=== PATIENT | male | born 1950 | race Caucasian/White ===

== ENCOUNTER 2022-11-10 08:07 | Day surgery (SDC) | payer MEDICARE ==
[~2022-11-10] VITALS: Ht 167.6 cm; Wt 72.3 kg
[2022-11-10] VITALS (12 sets, daily range): BP systolic 109–138; BP diastolic 70–83
[~2022-11-10 08:07] MED LIST: ASPI81CH PO; CRUTCH2 USE; HYDACE5 PO; MAGN84 PO; MULVITA PO; PROBIOTIC1 EA13 PO; SILD25T; VITAMIN D310 MC4 PO; Vitamin B-Comp1 EACH
--- NOTE | 2022-11-10 10:12 | NUR ---
Ambulatory in Day Surgery History, Chart, Medications and Allergies reviewed before start of procedure.Patient confirms NPO status and agrees with scheduled surgery. Pre-Op teaching done. Pt verbalizes understanding. Patient States Post-Procedure ride home has been arranged.
--- NOTE | 2022-11-10 10:50 | NUR ---
11/10/22 1050 Vanessa Galvin History, Chart, Medications and Allergies reviewed before start of procedure. MONITOR INTACT WITH CONTINUOUS PULSE OXIMETRY, CONTINUOUS END TITAL CO2, AND INTERMITTENT BLOOD PRESSURE. 3-LEAD EKG REVIEWED WITH PHYSICIAN PRIOR TO START OF PROCEDURE. O2 VIA N/C INTACT THROUGHOUT SEDATION/PROCEDURE. See Anesthesia record FROM DR. LUA
--- NOTE | 2022-11-10 14:21 | NUR ---
DISCHARGE NOTE PT A&OX4, VSS, NO COMPLAINTS. ICE TO INCISION SITE, PT DRESSED INDEPENDENTLY C RN AT [facility]. Discharge instructions reviewed with patient. Patient verbalizes understanding. Copy given to patient to take home. Dressing to procedure site clean, dry, intact with no visible drainage, swelling, erythema or bruising noted. Discharged via wheelchair to private car for ride home.
== END 2022-11-10 14:30 | disposition home or self-care (01) ==
LOC: ORSCMMR 08:07
PROVIDERS: Surgery
PROC: 0YU60JZ Supplement Left Inguinal Region with Synthetic Substitute, Open Approach (ICD-10-PCS; principal; 2022-11-10 09:45)
PROC: 3E0M05Z Introduction of Adhesion Barrier into Peritoneal Cavity, Open Approach (ICD-10-PCS; principal; 2022-11-10 09:45)
DX: K40.90 Unilateral inguinal hernia, without obstruction or gangrene, not specified as recurrent (principal); Z79.82 Long term (current) use of aspirin; Z86.73 Personal history of transient ischemic attack (TIA), and cerebral infarction without residual deficits
CPT/HCPCS: A9270; C1781; J0690; J1100; J2405; J2704; J2795; J3010; J7120

== ENCOUNTER 2025-01-17 15:56 | Observation (INO) | payer OTHER ==
[2025-01-17 17:24] LABS: BASOPHILS ABSOLUTE AUTO 0.05 K/mm3 (0.00-0.23); BASOPHILS PERCENT AUTO 1 % (0-2); EOSINOPHILS ABSOLUTE AUTO 0.10 K/mm3 (0.00-0.68); EOSINOPHILS PERCENT AUTO 2 % (0-6); Hematocrit 41.9 % (37.0-53.0); Hemoglobin 14.1 g/dL (13.5-17.5); IMMATURE GRAN ABSOLUTE AUTO 0.02 K/mm3 (0.00-0.10); IMMATURE GRAN PERCENT AUTO 0 % (0-1); LYMPHOCYTES ABSOLUTE AUTO 1.13 K/mm3 (0.84-5.20); LYMPHOCYTES PERCENT AUTO 21 % (21-46); MONOCYTES ABSOLUTE AUTO 0.65 K/mm3 (0.16-1.47); MONOCYTES PERCENT AUTO 12 % (4-13); Mean Corpuscular HGB Conc 33.7 g/dL (31.5-36.5); Mean Corpuscular Volume 93 fL (80-100); NEUTROPHILS ABSOLUTE AUTO 3.49 K/mm3 (1.96-9.15); NEUTROPHILS PERCENT AUTO 64 % (41-73); NRBC ABSOLUTE 0.00 K/mm3 (0.00-0.02); NRBC Auto 0.0 /100 WBC (0.0-0.2); Platelet Count 217 K/mm3 (150-400); RDW Coefficient Variation 12.1 % (11.7-14.2); RDW Standard Deviation 41.3 fL (35.1-46.3)
[2025-01-17 17:37] LABS: Alanine Aminotransfer (ALT/SGP 23.0 U/L (12-78); Albumin, Blood 3.7 g/dL (3.4-5.0); Albumin/Globulin Ratio 1.2 (0.8-1.8); Anion Gap 6.0 mmol/L (3-11); Aspartate Aminotrans (AST/SGOT 29.0 U/L (12-37); Bilirubin, Total 0.8 mg/dL (0.1-1.0); Blood Urea Nitrogen 16.0 mg/dL (8-24); CO2, Blood 29.0 mmol/L (21-32); Calcium, Blood 9.1 mg/dL (8.5-10.1); Chloride, Blood 104.0 mmol/L (98-108); Creatinine, Blood 0.9 mg/dL (0.60-1.20); Globulin, Blood 3.0 g/dL (2.2-4.0); Glucose, Blood 98.0 mg/dL (70-99); Potassium, Blood 4.2 mmol/L (3.5-5.5); Sodium, Blood 135.0 mmol/L (136-145); Total Protein, Blood 6.7 g/dL (6.4-8.2)
[2025-01-17] MEDS ORDERED: Ondansetron HCl 2 MG / ML 2ML Vial IV PRN (18:35)
[2025-01-17 22:44] VITALS: BP 100/69
[2025-01-18 00:35] VITALS: BP 110/75
[2025-01-18 04:19] VITALS: BP 113/79
[2025-01-18 04:33] LABS: BASOPHILS ABSOLUTE AUTO 0.05 K/mm3 (0.00-0.23); BASOPHILS PERCENT AUTO 1 % (0-2); EOSINOPHILS ABSOLUTE AUTO 0.20 K/mm3 (0.00-0.68); EOSINOPHILS PERCENT AUTO 5 % (0-6); Hematocrit 40.0 % (37.0-53.0); Hemoglobin 13.8 g/dL (13.5-17.5); IMMATURE GRAN ABSOLUTE AUTO 0.02 K/mm3 (0.00-0.10); IMMATURE GRAN PERCENT AUTO 1 % (0-1); LYMPHOCYTES ABSOLUTE AUTO 1.18 K/mm3 (0.84-5.20); LYMPHOCYTES PERCENT AUTO 28 % (21-46); MONOCYTES ABSOLUTE AUTO 0.56 K/mm3 (0.16-1.47); MONOCYTES PERCENT AUTO 13 % (4-13); Mean Corpuscular HGB Conc 34.5 g/dL (31.5-36.5); Mean Corpuscular Volume 93 fL (80-100); NEUTROPHILS ABSOLUTE AUTO 2.17 K/mm3 (1.96-9.15); NEUTROPHILS PERCENT AUTO 52 % (41-73); NRBC ABSOLUTE 0.00 K/mm3 (0.00-0.02); NRBC Auto 0.0 /100 WBC (0.0-0.2); Platelet Count 185 K/mm3 (150-400); RDW Coefficient Variation 12.1 % (11.7-14.2); RDW Standard Deviation 41.7 fL (35.1-46.3)
[2025-01-18 04:54] LABS: Alanine Aminotransfer (ALT/SGP 21 U/L (12-78); Albumin, Blood 3.3 g/dL (3.4-5.0); Albumin/Globulin Ratio 1.3 (0.8-1.8); Anion Gap 6 mmol/L (3-11); Aspartate Aminotrans (AST/SGOT 18 U/L (12-37); Bilirubin, Total 0.7 mg/dL (0.1-1.0); Blood Urea Nitrogen 14 mg/dL (8-24); CHOL/HDL RATIO 2.4; CO2, Blood 27 mmol/L (21-32); Calcium, Blood 8.0 mg/dL (8.5-10.1); Chloride, Blood 107 mmol/L (98-108); Cholesterol 142 mg/dL (50-200); Creatinine, Blood 0.78 mg/dL (0.60-1.20); Globulin, Blood 2.5 g/dL (2.2-4.0); Glucose, Blood 93 mg/dL (70-99); HDL Cholesterol 60 mg/dL (>39); LDL/HDL RATIO 1.0; Low Density Lipoprotein Chol 62 mg/dL (0-110); Magnesium, Blood 2.2 mg/dL (1.6-2.4); Potassium, Blood 3.9 mmol/L (3.5-5.5); Sodium, Blood 136 mmol/L (136-145); Total Protein, Blood 5.8 g/dL (6.4-8.2); Triglycerides 101 mg/dL (30-160); Very Low Density Lipoprot Chol 20 mg/dL (6-32)
--- NOTE | 2025-01-18 06:17 | NUR ---
NEW ADMIT / COVER MARKER SUMMARY NEW ADMIT FOR CVA WORKUP; PT CAME TO ED AFTER EXPERIENCING WEAKNESS IN HIS LEFT LEG. PT IS A/OX4. PLEASANT/COOPERATIVE. PT IS VERY ACTIVE, REPORTS DAILY EXERCISE AND EATING A VEGITARIAN DIET. PT DENIES IGNITION SOURCES AND HE DENIES SAFETY CONCERNS AT HOME. PT HAS SLIGHT DRIFT TO LEFT LEG WHEN HOLDING IN THE AIR. DENIES N&T. PT TAKES SUPPLEMENTS DAILY BUT NOT PRESCRIPTION DRUGS. 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 PT REPORTED AFTER THAT TIA HE REFERRED TO [facility] FOR HEART VALVE NOT CLOSING (OR [facility]). A PROCEDURE WAS RECOMMENDED WHICH HE DECLINED DUE TO RISKS. PT IS SCHEDULED FOR MRI AND HAS COMPLETED THE FORM. PT HAS EXPRESSED DESIRE TO SPEAK WITH DR PRIOR TO MRI HE WANTS TO CONSIDER RISKS VS BENEFITS OF PROCEDURE. PT IS INDEPENDENT IN THE ROOM. WALKS WITH A STEADY GAIT. PT ON TELE AND HAS BEEN SINUS JUAN A IN THE 40'S AND 50'S T/O THE NIGHT. PT ASYMPTOMATIC. PT ORIENTED TO ROOM AND CALL LIGHT. REGULAR ROUNDING COMPLETED T/O THE NIGHT. CARE WILL CONTINUE UNTIL REPORT GIVEN TO ONCOMING NURSE.
[2025-01-18 07:04] VITALS: BP 133/74
[2025-01-18] MEDS ORDERED: Enoxaparin 40 MG/0.4 ML SYR SC SCH (09:00)
[2025-01-18 13:43] VITALS: BP 101/64
[2025-01-18] MEDS ORDERED: TUMERIC PO (15:59)
[2025-01-18] MEDS ORDERED: [UNRECOGNIZED DRUG - OTHER] PO (15:59)
[2025-01-18] MEDS ORDERED: Ginger500 MG PO (15:59)
[2025-01-18 16:19] VITALS: BP 115/73
--- NOTE | 2025-01-18 16:46 | NUR ---
PT STATES LOW H/R NORMAL FOR HIM, STATES LOTS OF WORKOUT TIME. PER TLE DROPS TO LOW 50-S, HAS MINIMAL RESIDUAL WEAKNESS LEFT HAND AND LEG. NO FACIAL DROOP NOTED. PT HOPEFUL TO GO HOME TODAY. PENDING READING OF MRI FOR CLEARANCE FOR DISCAHRGE. NO OTHER NEW CONCERNS NOTED. AMBULATING ABOUT ROOM INDEPENDANTLY. BED IN LOW POSITION, CALL LITE IN REACH, CALLS APPROP
[2025-01-18] MEDS ORDERED: ATOR80 PO (17:41)
[2025-01-18] MEDS ORDERED: CLOP75 PO (17:41)
--- NOTE | 2025-01-18 18:22 | NUR ---
DISCHARGE REVIEWED WITH PT. HE VERBALIZED UNDERSTANDING MEDS AND INST./ IV AND TELE REMOVED BYGILBERTOE. PT AMBULATED TO DOOR AT 18;22
== END 2025-01-18 18:37 | disposition home or self-care (01) ==
LOC: ER 15:56 → MEDS 18:28 → ENPENDDIS 01-18 17:20 → MEDS 01-18 18:37
PROVIDERS: Emergency Medicine; ADMIT Student in an Organized Health Care Education/Training Program
DX: R53.1 Weakness (principal); R00.1 Bradycardia, unspecified; Z86.73 Personal history of transient ischemic attack (TIA), and cerebral infarction without residual deficits; Z79.02 Long term (current) use of antithrombotics/antiplatelets; Z79.82 Long term (current) use of aspirin; Z79.899 Other long term (current) drug therapy; Z88.0 Allergy status to penicillin
CPT/HCPCS: 36415; 70450; 70551; 80053; 80061; 83735; 85025; 93005; 93010; 93306; 99285-25; A9270; G0378